=== PATIENT | male | born 1985 | race Caucasian/White ===

== ENCOUNTER 2016-06-20 11:02 | Observation (INO) | payer BC, MEDICAID, OTHER ==
[2016-06-20 13:25] LABS: Urine Bilirubin Negative (Negative); Urine Glucose Negative (Negative); Urine Nitrite Negative (Negative)
[2016-06-20] MEDS ORDERED: NS 0.9% 1000 ML* 1,000 ML IV ONE (14:22)
[2016-06-20] MEDS ORDERED: Ondansetron INJ* 2 MG/ML VIAL IV ONE (14:22)
[2016-06-20] MEDS ORDERED: HYDROmorphone* 1 MG/ML 1 ML SYR IV ONE (14:22)
[2016-06-20 15:22] LABS: Comments Flag Yes; Hematocrit 40 % (42-52); Hemoglobin 13.6 g/dl (14.0-18.0); Mean Corpuscular HGB Conc 34 g/dl (31-36); Mean Corpuscular Hemoglobin 29 pg (27-31); Mean Corpuscular Volume 86 fL (80-94); Mean Platelet Volume 7 um3 (7.4-10.4); Red Blood Count 4.66 10^6/ul (4.0-5.4); Red Cell Distribution Width 12 % (10.5-15); White Blood Count 16.7 10^3/ul (3.5-10.8)
[2016-06-20 15:23] LABS: Add Diff/Slide Review? Slide Review Added
[2016-06-20 15:40] LABS: Albumin 3.9 g/dL (3.2-5.2); BUN/Creatinine Ratio 10.8 (8-20); C Reactive Protein 133.35 mg/L (< 5.00); Calcium 8.9 mg/dL (8.6-10.3); EGFR African American 100.7 (>60); EGFR Non-African American 78.3 (>60); Globulin 3.4 g/dL (2-4); Potassium 3.8 mmol/L (3.5-5.0); Total Bilirubin 0.7 mg/dL (0.2-1.0); Total Protein 7.3 g/dL (6.4-8.9)
[2016-06-20] MEDS ORDERED: Iohexol 300* (CONTRAST) 10 ML SDV IV ONE (16:17)
--- NOTE | 2016-06-20 17:03 | RAD ---
INDICATION: 1 week LEFT lower quadrant abdominal pain. Sharp character of pain. No previous surgery. COMPARISON: October 23, 2014 CT. TECHNIQUE: Multidetector CT images were obtained from the lung bases to the ischial tuberosities with 133 mL Omnipaque 300 IV and oral contrast. Multiplanar reformation. REPORT: Unremarkable visualized inferior thorax. Unremarkable liver, gallbladder, and pancreas. Upper normal size spleen. Small splenule anterior to the spleen. Unremarkable upper GI. Fecal appearing contents in the distal and terminal ileum without significant small bowel dilatation or mural thickening. Unremarkable medially extending diminutive appendix. Mild diffuse colonic diverticulosis. Long segment mural thickening of the sigmoid colon and severe perienteric inflammatory stranding. Small volume of perienteric free pelvic fluid and suggestion of a few foci of extra enteric gas along the RIGHT anterior margin of the mid sigmoid colon bowel wall reference axial images 75 and 76. No loculated perienteric abscess collection evident. Normal adrenal glands. Unremarkable kidneys with symmetric nephrograms and pyelograms. Negative for ureteral dilatation. Largely decompressed urinary bladder without gross abnormality. Symmetric prominent seminal vesicles similar to the prior exam. Negative for thoracic lymphadenopathy. Normal diameter abdominal aorta and iliac arteries. Physiologic distention of the IVC. Negative for suspicious osseous lesions. IMPRESSION: The constellation of findings is most suspicious for diverticulosis of the sigmoid colon with suggestion of microperforation with extensive perienteric inflammatory change without loculated perienteric abscess collection or resulting bowel obstruction. Imaging follow-up after therapy warranted to assess for resolution of the bowel wall thickening.
[2016-06-20] MEDS ORDERED: metroNIDAZOLE IV 500 MG/100ML* 500 MG/100 ML BAG IVPB ONE (18:02)
[2016-06-20] MEDS ORDERED: oxyCODONE TAB* 5 MG TAB PO PRN ×2 (19:04)
[2016-06-20] MEDS ORDERED: Acetaminophen TAB* 325 MG PO PRN (19:05)
--- NOTE | 2016-06-20 19:08 | ADMNOTE ---
Subjective Date of Service: 06/20/16 Interval History: ADMISSION HISTORY AND PHYSICAL EXAM: Allergies Allergy/AdvReac Type Severity Reaction Status Date / Time No Known Allergies Allergy Verified 12/03/13 11:59 Home Medications Medication Instructions Recorded Confirmed Type Preworkout 12/03/13 12/03/13 History Protein [Whey Protein] 1 pow PO 12/03/13 12/03/13 History Clindamycin Cap(NF) [Cleocin 300 300 mg PO Q6H #40 cap 01/07/16 Rx mg Cap(NF)] HPI: Patient developed mid- and left-lower abdominal pain 7-8 days ago. He went to work all wee, did not take any analgesics. He had sweats and chills. He ate OK. Family History: Findings - Parents A&W, 1 aib A&W. No family hx colon disease. Social History: Findings - , 2 children. is his SDM. No tobacco or alcohol use. Past Medical History: Findings - None Review of Systems - Measurements Intake and Output: Intake and Output Last 24 Hours 06/18/16 06/19/16 06/20/16 06/21/16 06:59 06:59 06:59 06:59 Intake Total 1000 Balance 1000 Weight 220 lb Intake: IV Fluids 1000 Other: Date of Last Bowel 06/20/16 Movement - Review of Systems Constitutional Symptoms: Negative: Weight Gain, Weight Loss, Weakness, Fatigue, Fever, Night Sweats, Unexplained Falls, Other Dermatology: Positive: Normal HEENT: Positive: Normal Eyes: Positive: Normal Thyroid: Positive: Normal Pulmonary: Positive: Normal Objective Active Medications: Ciprofloxacin/Dextrose (Cipro 400 Mg Ivpremix(*)) 200 mls @ 200 mls/hr IVPB ED ONCE ONE Stop: 06/20/16 19:01 Vital Signs 06/20/16 06/20/16 06/20/16 11:03 12:39 13:30 Temperature 99.7 F 101.9 F 100 F Pulse Rate 93 88 89 Respiratory 22 16 18 Rate Blood Pressure 135/75 121/67 124/72 (mmHg) O2 Sat by Pulse 100 100 98 Oximetry 06/20/16 06/20/16 06/20/16 14:59 16:00 18:50 Temperature 99.1 F 98.3 F Pulse Rate 81 71 Respiratory 20 16 18 Rate Blood Pressure 126/79 116/58 (mmHg) O2 Sat by Pulse 97 97 Oximetry Oxygen Devices in Use Now: None Appearance: Alert, Result Diagrams: 06/20/16 15:17 06/20/16 15:17 Additional Lab and Data: Lab Results 06/20/16 Range/Units 12:17 Urine Color Yellow Urine Appearance Clear Urine pH 8.0 (5-9) Ur Specific [place] 1.010 (1.010-1.030) Urine Protein Negative (Negative) Urine Ketones Trace H (Negative) Urine Blood Negative (Negative) Urine Nitrate Negative (Negative) Urine Bilirubin Negative (Negative) Urine Urobilinogen Negative (Negative) Ur Leukocyte Esterase Negative (Negative) Urine Glucose Negative (Negative) Assess/Plan/Problems-Billing Assessment: - Patient Problems (1) Diverticulitis Current Visit: Yes Status: Acute Comment: Patient received IV ciprofloxacin and IV metronidazole in the ED. He developed a rash and itching. He was then given IV pip/kisha. He was given 1 dose each of po metronidazole and amox/clav and will take them for 10 days as an outpt. Fup Dr. Drake. The patient should have a colonoscopy in 4-6 weeks.
[2016-06-20] MEDS ORDERED: Ciprofloxacin 400MG IVPREMIX(* 400 MG/200 ML BAG IVPB ONE (20:45)
[2016-06-20] MEDS ORDERED: Piperac/Tazob 3.375 gm in NS* 3.375 GM/100 ML BAG IVPB ONE (23:00)
[2016-06-21] MEDS ORDERED: Piperac/Tazob 3.375 gm in NS* 3.375 GM/100 ML BAG IVPB SCH (03:00)
[2016-06-21 09:47] VITALS: BP 97/43
[2016-06-21] MEDS ORDERED: metroNIDAZOLE TAB* 250 MG PO SCH (10:00)
[2016-06-21] MEDS ORDERED: Ciprofloxacin TAB* 500 MG PO SCH (10:00)
--- NOTE | 2016-06-21 10:07 | DCNOTE ---
"Subjective Date of Service: 06/21/16 Interval History: He feels much better. Less abd pain, less scrotal pain. Good appetite. No more chills or sweats. Family History: Findings - Parents A&W, 1 aib A&W. No family hx colon disease. Social History: Findings - , 2 children. is his SDM. No tobacco or alcohol use. Past Medical History: Findings - None Objective Active Medications: Acetaminophen (Tylenol Tab*) 650 mg PO Q4H PRN PRN Reason: PAIN Ciprofloxacin (Cipro Tab*) 500 mg PO Q12HR SAMUEL Metronidazole (Flagyl Tab*) 500 mg PO TID SAMUEL Oxycodone HCl (Roxycodone Tab*) 5 mg PO Q4H PRN PRN Reason: PAIN - MODERATE Oxycodone HCl (Roxycodone Tab*) 10 mg PO Q6H PRN PRN Reason: PAIN - SEVERE Last Admin: 06/20/16 20:43 Dose: 10 mg Vital Signs 06/20/16 06/20/16 06/20/16 18:50 19:39 20:43 Temperature 98.3 F 98.5 F Pulse Rate 71 84 Respiratory 18 16 16 Rate Blood Pressure 116/58 119/66 (mmHg) O2 Sat by Pulse 97 99 Oximetry 06/20/16 06/20/16 06/21/16 22:43 23:42 03:54 Temperature 97.7 F 97.5 F Pulse Rate 64 58 Respiratory 18 16 16 Rate Blood Pressure 109/62 95/54 (mmHg) O2 Sat by Pulse 99 99 Oximetry 06/21/16 06/21/16 07:02 08:00 Temperature 98.2 F Pulse Rate 59 Respiratory 18 18 Rate Blood Pressure 97/43 (mmHg) O2 Sat by Pulse 99 Oximetry Oxygen Devices in Use Now: None Appearance: Alert, partly up in bed. In good spirits. Looks comfortable. Eyes: No Scleral Icterus Abdominal: No Hepatosplenomegaly, - - Minimal if any abd tenderness. Nl BS. Soft. No organomegaly Extremities: No Edema, No Clubbing, Cyanosis, - Skin: No Rash or Ulcers, No Nodules or Sclerosis, - Neurological: Alert and Oriented x 3, NL Sensation Result Diagrams: 06/20/16 15:17 06/20/16 15:17 Additional Lab and Data: Lab Results 06/20/16 Range/Units 12:17 Urine Color Yellow Urine Appearance Clear Urine pH 8.0 (5-9) Ur Specific [place] 1.010 (1.010-1.030) Urine Protein Negative (Negative) Urine Ketones Trace H (Negative) Urine Blood Negative (Negative) Urine Nitrate Negative (Negative) Urine Bilirubin Negative (Negative) Urine Urobilinogen Negative (Negative) Ur Leukocyte Esterase Negative (Negative) Urine Glucose Negative (Negative) Assess/Plan/Problems-Billing Assessment: - Patient Problems (1) Diverticulitis Current Visit: Yes Status: Acute Status and Disposition: Discharge now. Fup Dr. Drake. Search Terms: nona english, 1985 Search Date: 06/21/2016 10:03:48 AM This report was requested by: Diaz Meneses | Reference #: [id number] There are no results for the search terms that you entered."
[2016-06-21] MEDS ORDERED: Amoxicillin/Clavulanate TAB* 875 MG PO SCH (11:00)
--- NOTE | 2016-06-21 14:56 | ED ---
Lana Ríos Rebecca, scribed for Roland Healy MD on 06/20/16 at 1414 . Abdominal Pain/Male - HPI Summary HPI Summary: Pt is a 30 y/o M with a CC of abdominal pain. Pain began suddenly 2 days ago and has been constant since onset. Pain is in the LLQ with radiation to the testicles, described as feeling like "the chords are being yanked on." Pain is severe, ranked 7/10 and characterized as aching with occasional episodes of severe throbbing. Sx aggravated by movement and alleviated by nothing. Additionally c/o decreased appetite and constipation since yesterday. Denies nausea. - History of Current Complaint Chief Complaint: EDAbdPain Stated Complaint: ABDOMINAL PAIN Time Seen by Provider: 06/20/16 14:10 Hx Obtained From: Patient Onset/Duration: Sudden Onset, Lasting Weeks - 2 weeks, Still Present Timing: Constant Severity Initially: Moderate Severity Currently: Severe Pain Intensity: 7 Pain Scale Used: 0-10 Numeric Location: Discrete At: LLQ Radiates: Yes Radiates to: Other - Testicles Character: Dull, Other: - Occasional throbbing episodes Aggravating Factor(s): Movement Alleviating Factor(s): Other: - Pressure Associated Signs And Symptoms: Positive: Constipation, Decreased Appetite. Negative: Nausea - Allergies/Home Medications Allergies/Adverse Reactions: Allergies Allergy/AdvReac Type Severity Reaction Status Date / Time Ciprofloxacin [From Cipro] Allergy Rash And Verified 06/20/16 22:10 Itching PMH/Surg Hx/FS Hx/Imm Hx Endocrine/Hematology History: Denies: Hx Diabetes, Hx Thyroid Disease Cardiovascular History: Denies: Hx Hypertension Respiratory History: Denies: Hx Asthma, Hx Chronic Obstructive Pulmonary Disease (COPD) GI History: Denies: Hx Ulcer Infectious Disease History: No Infectious Disease History: Denies: Hx Hepatitis, Hx Human Immunodeficiency Virus (HIV), Traveled Outside the [place] in Last 30 Days - Family History Known Family History: Negative: Hypertension - Social History Alcohol Use: Rare Substance Use Type: Reports: None Smoking Status (MU): Former Smoker Review of Systems Positive: Abdominal Pain - LLQ with radiation to the testicles, Other - Decreased appetite. Negative: Nausea Positive: other - Constipation All Other Systems Reviewed And Are Negative: Yes Physical Exam Triage Information Reviewed: Yes Vital Signs On Initial Exam: Initial Vitals Temp Pulse Resp BP Pulse Ox 99.7 F 93 22 135/75 100 06/20/16 11:03 06/20/16 11:03 06/20/16 11:03 06/20/16 11:03 06/20/16 11:03 Vital Signs Reviewed: Yes Appearance: Positive: Well-Appearing, No Pain Distress Skin: Positive: Warm, Skin Color Reflects Adequate Perfusion, Dry Head/Face: Positive: Normal Head/Face Inspection Eyes: Positive: Normal ENT: Positive: Normal ENT inspection Neck: Positive: Supple, Nontender Respiratory/Lung Sounds: Positive: Clear to Auscultation, Breath Sounds Present Cardiovascular: Positive: RRR Abdomen Description: Negative: Nontender - Tender in the LLQ Bowel Sounds: Positive: Present Musculoskeletal: Positive: Normal Neurological: Positive: Normal Psychiatric: Positive: Normal - Jolly Coma Scale Coma Scale Total: 15 Diagnostics - Vital Signs Vital Signs Temp Pulse Resp BP Pulse Ox 06/20/16 13:30 100 F 89 18 124/72 98 06/20/16 12:39 101.9 F 88 16 121/67 100 06/20/16 11:03 99.7 F 93 22 135/75 100 - Laboratory Lab Results: Lab Results 06/20/16 Range/Units 12:17 Urine Color Yellow Urine Appearance Clear Urine pH 8.0 (5-9) Ur Specific [place] 1.010 (1.010-1.030) Urine Protein Negative (Negative) Urine Ketones Trace H (Negative) Urine Blood Negative (Negative) Urine Nitrate Negative (Negative) Urine Bilirubin Negative (Negative) Urine Urobilinogen Negative (Negative) Ur Leukocyte Esterase Negative (Negative) Urine Glucose Negative (Negative) Result Diagrams: 06/20/16 15:17 06/20/16 15:17 Lab Statement: Any lab studies that have been ordered have been reviewed, and results considered in the medical decision making process. - CT Abd/Pel CT CT Interpretation Completed By: Radiologist - The constellation of findings is most suspicious for diverticulosis of the sigmoid colon with suggestion of microperforation with extensive perienteric inflammatory change without loculated perienteric abscess collection or resulting bowel obstruction. Imaging follow-up after therapy warranted to assess for resolution of the bowel wall thickening. Abdominal Pain Fem Course/Dx - Course Assessment/Plan: Mr. Delarosa is a 30 y/o M with a CC of severe LLQ pain with radiation to the testicles. Additionally c/o decreased appetite and constipation. Denies nausea. Abd/Pel CT reveals "The constellation of findings is most suspicious for diverticulosis of the sigmoid colon with suggestion of microperforation with extensive perienteric inflammatory change without loculated perienteric abscess collection or resulting bowel obstruction. Imaging follow-up after therapy warranted to assess for resolution of the bowel wall thickening." He was administered Cipro, Flagyl, Dilaudid, Zofran and IV fluids in the ED. Discussed care of pt with Dr. Chi who advised pt be admitted to the hospital. Discussed care of pt with Dr. Meneses, who accepts pt for admission. He will be admitted to hospitalist services with a Dx of diverticulitis with perforation. - Diagnoses Provider Diagnoses: Diverticulitis of colon with perforation - Provider Notifications Discussed Care Of Patient With: Dr. Chi, alligator hunter, who advises that pt be admitted to the hospital. Dr. Meneses, hospitalist, at [phone], who accepts pt for admission. Time Discussed With Above Provider: 18:00 - Critical Care Time Critical Care Time: 30-74 min Discharge - Discharge Plan Condition: Improved Disposition: ADMITTED TO [facility] documentation as recorded by the Lana zambrano Rebecca accurately reflects the service I personally performed and the decisions made by me, Roland Healy MD.
--- NOTE | 2016-06-21 22:06 | DS ---
CC: Dr. Drake DISCHARGE SUMMARY: DATE OF ADMISSION: DATE OF DISCHARGE: 06/21/16 HOSPITAL COURSE: This 30-year-old man came complaining of abdominal and scrotal pain. He had had t he symptoms including chills and sweats for 7 to 8 days at home. He continues to go to work every sc heduled day. CT scan showed few small diverticulosis and evidence of diverticulitis in the sigmoid colon. There was severe perienteric inflammatory stranding. There were a few foci of extraenteric gas along the margin of the mid sigmoid colon bowel wall, but no loculated abscess collection was evident. The patient's temperature was 101.9 in the emergency room. He received ciprofloxacin and metronidaz ole in the emergency room. He received a few doses of piperacillin and tazobactam after admission. The second hospital day, he was much better. Both the abdominal pain and scrotal pain were much imp roved. He had no more chills or sweats. He will get 10 days of oral ciprofloxacin and metronidazole at home. He should have a colonoscopy i n 4 to 6 weeks. FINAL DIAGNOSIS: Diverticulitis. DISCHARGE MEDICATIONS: 1. Acetaminophen 650 mg every 4 hours p.r.n. 2. Ciprofloxacin 500 mg every 12 hours for 10 days. 3. Metronidazole 500 mg t.i.d. for 10 days. 4. Oxycodone 5 mg every 4 hours p.r.n., dispensed 10 with no refills. 5. Whey protein and pre-workout powders as before. [id number]/[facility] #: [id number]
== END 2016-06-21 11:10 | disposition home or self-care (01) ==
LOC: ED 11:02 → MEDTELE 18:30
PROVIDERS: ADMIT Internal Medicine; ATTEND Internal Medicine
DX: K57.32 Diverticulitis of large intestine without perforation or abscess without bleeding (principal)
CPT/HCPCS: 36415; 74177; 80053; 81003; 83605; 83690; 85025; 86140; 87040; 96365; 96366; 96367; 96375; 99291; A9270-GY; G0378; J0744; J1170; J2405; J2543; Q9967

== ENCOUNTER 2017-06-29 09:58 | Emergency (ER) | payer BC, OTHER ==
[2017-06-29 10:40] LABS: ABS Basophils 0.1 10^3/ul (0-0.2); ABS Eosinophils 0.1 10^3/ul (0-0.6); ABS Lymphocytes 1.2 10^3/ul (1.0-4.8); ABS Monocytes 0.5 10^3/ul (0-0.8); ABS Neutrophils 5.4 10^3/ul (1.5-7.7); ABS Nucleated RBC 0 10^3/ul; Hematocrit 42 % (42-52); Hemoglobin 14.6 g/dl (14.0-18.0); Lymphocyte % 16.2 % (25-47); Mean Corpuscular HGB Conc 35 g/dl (31-36); Mean Corpuscular Hemoglobin 31 pg (27-31); Mean Corpuscular Volume 88 fL (80-94); Mean Platelet Volume 7.5 um3 (7.4-10.4); Nucleated Red Blood Cells % 0.1; Platelet Count 183 10^3/ul (150-450); Red Blood Count 4.77 10^6/ul (4.0-5.4); Red Cell Distribution Width 13 % (10.5-15); White Blood Count 7.3 10^3/ul (3.5-10.8)
[2017-06-29 10:51] LABS: INR 1.02 (0.77-1.02)
[2017-06-29 10:54] LABS: Urine Appearance Clear; Urine Blood Negative (Negative); Urine Color Yellow; Urine Ketones Negative (Negative); Urine Protein Negative (Negative); Urine Specific Gravity 1.015 (1.010-1.030); Urine Urobilinogen Negative (Negative)
[2017-06-29 11:02] LABS: EGFR Non-African American 78.6 (>60)
[2017-06-29] MEDS ORDERED: Iohexol 300* (CONTRAST) 10 ML SDV IV ONE (11:11)
--- NOTE | 2017-06-29 14:11 | RAD ---
INDICATION: Left lower quadrant pain COMPARISON: June 20, 2016 TECHNIQUE: Axial source images were obtained from the hemidiaphragms to the symphysis pubis following administration of oral and intravenous contrast. 136 mL Omnipaque 300 was utilized. Coronal and sagittal reconstructed images were acquired. Lung bases: The lung bases are clear. Liver: The liver is normal in size. There are no masses. There is no ductal dilatation. Gallbladder: There are no calcified gallstones. There is no evidence of wall thickening or pericholecystic fluid. Spleen: The spleen is normal in size. There are no masses. Pancreas: There is no focal pancreatic mass or ductal dilatation. Adrenal glands: There is no evidence of adrenal mass. Kidneys: The kidneys are normal in size and position. There are prompt nephrograms and there is prompt excretion bilaterally. There are no renal parenchymal masses. There is no evidence of nephrolithiasis. Adenopathy: There is no evidence of adenopathy by size criteria. Fluid collections: There is free fluid in the dependent portion of the pelvis. Vessels:There are no significant atherosclerotic changes involving the aorta. There is no focal aneurysm. The iliac vessels are normal in caliber. The IVC appears normal. GI tract: The upper GI tract is normal to include the terminal ileum. Ileocecal valve is normal. The cecum and appendix are normal. The transverse colon is normal. At the rectosigmoid junction. There is perienteric stranding compatible with mild diverticulitis. There are no findings of obstruction or perforation Pelvic organs: Prostate is mildly enlarged Bladder: There are no bladder masses. Abdominal and pelvic soft tissues: The extraperitoneal abdominal and pelvic soft tissues appear normal.. Osseous structures: There are no acute osseous findings. Other: None IMPRESSION: CT findings of acute diverticulitis of the colon near the rectosigmoid junction
[2017-06-29 15:54] VITALS: BP 109/67
--- NOTE | 2017-06-30 02:19 | ED ---
Lana Ríos Rebecca, scribed for Ramya Conte MD on 06/29/17 at 1021 . Abdominal Pain/Male - HPI Summary HPI Summary: Pt is a 31 y/o M who presents to ED c/o LLQ abdominal pain. Pain began yesterday upon waking up for work, initially mild. 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 Upon waking up this morning, the pain had improved but due to its consistency, he presented to the ED today. Pain is characterized as aching, currently moderate, ranked 4/10 and at its worst, 7/10. Pain is located in the LLQ and does not radiate anywhere, including the testicles. Sx aggravated and alleviated by nothing. Additionally notes mild constipation that began last night as well as intermittent testicular pain that has been chronic - he believes it is secondary to his boxers. Denies blood in stool, V/D, fever, CP, SOB, and dysuria. Current episode is similar to prior flareup of diverticulitis. Did not eat this morning - drank caffeine this morning. FHx and PMHx diverticulitis - initially diagnosed 1.5 years ago after a flareup for which he was admitted overnight and given Abx (Flagyl). No PSHx. Does not have a PCP and drove himself to the ED today. Pt is allergic to Cipro. - History of Current Complaint Chief Complaint: EDAbdPain Stated Complaint: ABD PAIN Time Seen by Provider: 06/29/17 10:09 Hx Obtained From: Patient Onset/Duration: Gradual Onset, Lasting Days - Started yesterday, Still Present Timing: Constant Severity Initially: Mild Severity Currently: Moderate Pain Intensity: 4 Pain Scale Used: 0-10 Numeric Location: Discrete At: LLQ Radiates: No Character: Other: - Aching Aggravating Factor(s): Nothing Alleviating Factor(s): Nothing Associated Signs And Symptoms: Positive: Constipation - mild, Other - intermittent testicular pain for months, none now, and pain does not radiate to the testicles. Negative: Fever, Chest Pain, Blood in Stool, Vomiting, Diarrhea Similar Episode/Dx As:: Prior flareup - Risk Factors Testicular Torsion: Negative - Allergies/Home Medications Allergies/Adverse Reactions: Allergies Allergy/AdvReac Type Severity Reaction Status Date / Time ciprofloxacin [From Cipro] Allergy Rash And Verified 06/29/17 10:12 Itching PMH/Surg Hx/FS Hx/Imm Hx Previously Healthy: No Endocrine/Hematology History: Denies: Hx Diabetes, Hx Thyroid Disease Cardiovascular History: Denies: Hx Hypertension Respiratory History: Denies: Hx Asthma, Hx Chronic Obstructive Pulmonary Disease (COPD) GI History: Reports: Other GI Disorders - diverticulitis Denies: Hx Ulcer Sensory History: Denies: Hx Contacts or Glasses, Hx Hearing Aid Opthamlomology History: Denies: Hx Contacts or Glasses - Surgical History Surgery Procedure, Year, and Place: none Infectious Disease History: No Infectious Disease History: Denies: Hx Hepatitis, Hx Human Immunodeficiency Virus (HIV), Traveled Outside the [place] in Last 30 Days - Family History Known Family History: Positive: Other - Hx diverticulitis (father) Negative: Hypertension - Social History Occupation: Employed Full-time - [employer] Lives: With Family Alcohol Use: Rare Substance Use Type: Reports: None Smoking Status (MU): Former Smoker Review of Systems Negative: Fever Negative: Chest Pain Negative: Shortness Of Breath Positive: Abdominal Pain - LLQ, Other - mild constipation. Negative: Vomiting, Diarrhea Positive: pain - Testicular pain - intermittent chronically, other - NEGATIVE: Blood in stool. Negative: dysuria Musculoskeletal: Negative Skin: Negative Neurological: Negative Psychological: Normal All Other Systems Reviewed And Are Negative: Yes Physical Exam - Summary Physical Exam Summary: Appearance: well-appearing, moderate pain distress, well-nourished Skin: Warm, color reflects adequate perfusion Head: Normal Head/Face inspection, Atraumatic Eyes: Conjunctiva clear ENT: Normal inspection Neck: Supple, no nodes, no JVD. Respiratory: Lungs clear, Normal breath sounds, no respiratory distress Cardio: RRR, No murmur, pulses normal, brisk capillary refill Abdomen: Soft, tenderness in the LLQ, no guarding, no rebound, no masses : Circumcised male, testicles descended bilaterally, no testicular masses, no inguinal or femoral hernias Rectal: Firm, brown stool, not impacted, sent for testing, guaiac neg Nurse Franco is smash hand for rectal and testicular exam Bowel sounds: present Musculoskeletal: Strength Intact/ROM intact. No calf tenderness. No edema. Psychological: Normal Neuro: Alert, muscle tone normal, no focal deficit Triage Information Reviewed: Yes Vital Signs On Initial Exam: Initial Vitals Temp Pulse Resp BP Pulse Ox 98.6 F 61 16 129/85 99 06/29/17 10:01 06/29/17 10:01 06/29/17 10:01 06/29/17 10:01 06/29/17 10:01 Vital Signs Reviewed: Yes Diagnostics - Vital Signs Vital Signs Temp Pulse Resp BP Pulse Ox 06/29/17 10:01 98.6 F 61 16 129/85 99 - Laboratory Lab Results: Lab Results 06/29/17 06/29/17 06/29/17 Range/Units 10:29 10:29 10:29 WBC 7.3 (3.5-10.8) 10^3/ul RBC 4.77 (4.0-5.4) 10^6/ul Hgb 14.6 (14.0-18.0) g/dl Hct 42 (42-52) % MCV 88 (80-94) fL MCH 31 (27-31) pg MCHC 35 (31-36) g/dl RDW 13 (10.5-15) % Plt Count 183 (150-450) 10^3/ul MPV 7.5 (7.4-10.4) um3 Neut % (Auto) 74.8 (38-83) % Lymph % (Auto) 16.2 L (25-47) % [place] % (Auto) 7.1 H (0-7) % Eos % (Auto) 1.0 (0-6) % Baso % (Auto) 0.9 (0-2) % Absolute Neuts (auto) 5.4 (1.5-7.7) 10^3/ul Absolute Lymphs (auto) 1.2 (1.0-4.8) 10^3/ul Absolute Monos (auto) 0.5 (0-0.8) 10^3/ul Absolute Eos (auto) 0.1 (0-0.6) 10^3/ul Absolute Basos (auto) 0.1 (0-0.2) 10^3/ul Absolute Nucleated RBC 0 10^3/ul Nucleated RBC % 0.1 INR (Anticoag Therapy) 1.02 (0.77-1.02) APTT 29.9 (26.0-36.3) seconds Sodium 138 L (139-145) mmol/L Potassium 4.0 (3.5-5.0) mmol/L Chloride 105 (101-111) mmol/L Carbon Dioxide 28 (22-32) mmol/L Anion Gap 5 (2-11) mmol/L BUN 17 (6-24) mg/dL Creatinine 1.10 (0.67-1.17) mg/dL Est GFR ( Amer) 101.1 (>60) Est GFR (Non-Af Amer) 78.6 (>60) BUN/Creatinine Ratio 15.5 (8-20) Glucose 121 H (70-100) mg/dL Lactic Acid (0.5-2.0) mmol/L Calcium 8.7 (8.6-10.3) mg/dL Magnesium 2.0 (1.9-2.7) mg/dL Total Bilirubin 0.70 (0.2-1.0) mg/dL AST 15 (13-39) U/L ALT 14 (7-52) U/L Alkaline Phosphatase 50 (34-104) U/L C-Reactive Protein 8.16 H (< 5.00) mg/L Total Protein 6.6 (6.4-8.9) g/dL Albumin 3.9 (3.2-5.2) g/dL Globulin 2.7 (2-4) g/dL Albumin/Globulin Ratio 1.4 (1-3) Amylase 41 (29-103) U/L Lipase 19 (11.0-82.0) U/L Urine Color Urine Appearance Urine pH (5-9) Ur Specific [place] (1.010-1.030) Urine Protein (Negative) Urine Ketones (Negative) Urine Blood (Negative) Urine Nitrate (Negative) Urine Bilirubin (Negative) Urine Urobilinogen (Negative) Ur Leukocyte Esterase (Negative) Urine Glucose (Negative) 18 06/29/17 Range/Units 10:29 10:37 WBC (3.5-10.8) 10^3/ul RBC (4.0-5.4) 10^6/ul Hgb (14.0-18.0) g/dl Hct (42-52) % MCV (80-94) fL MCH (27-31) pg MCHC (31-36) g/dl RDW (10.5-15) % Plt Count (150-450) 10^3/ul MPV (7.4-10.4) um3 Neut % (Auto) (38-83) % Lymph % (Auto) (25-47) % [place] % (Auto) (0-7) % Eos % (Auto) (0-6) % Baso % (Auto) (0-2) % Absolute Neuts (auto) (1.5-7.7) 10^3/ul Absolute Lymphs (auto) (1.0-4.8) 10^3/ul Absolute Monos (auto) (0-0.8) 10^3/ul Absolute Eos (auto) (0-0.6) 10^3/ul Absolute Basos (auto) (0-0.2) 10^3/ul Absolute Nucleated RBC 10^3/ul Nucleated RBC % INR (Anticoag Therapy) (0.77-1.02) APTT (26.0-36.3) seconds Sodium (139-145) mmol/L Potassium (3.5-5.0) mmol/L Chloride (101-111) mmol/L Carbon Dioxide (22-32) mmol/L Anion Gap (2-11) mmol/L BUN (6-24) mg/dL Creatinine (0.67-1.17) mg/dL Est GFR ( Amer) (>60) Est GFR (Non-Af Amer) (>60) BUN/Creatinine Ratio (8-20) Glucose (70-100) mg/dL Lactic Acid 1.8 (0.5-2.0) mmol/L Calcium (8.6-10.3) mg/dL Magnesium (1.9-2.7) mg/dL Total Bilirubin (0.2-1.0) mg/dL AST (13-39) U/L ALT (7-52) U/L Alkaline Phosphatase (34-104) U/L C-Reactive Protein (< 5.00) mg/L Total Protein (6.4-8.9) g/dL Albumin (3.2-5.2) g/dL Globulin (2-4) g/dL Albumin/Globulin Ratio (1-3) Amylase (29-103) U/L Lipase (11.0-82.0) U/L Urine Color Yellow Urine Appearance Clear Urine pH 6 (5-9) Ur Specific [place] 1.015 (1.010-1.030) Urine Protein Negative (Negative) Urine Ketones Negative (Negative) Urine Blood Negative (Negative) Urine Nitrate Negative (Negative) Urine Bilirubin Negative (Negative) Urine Urobilinogen Negative (Negative) Ur Leukocyte Esterase Negative (Negative) Urine Glucose Negative (Negative) Result Diagrams: 06/29/17 10:29 06/29/17 10:29 Lab Statement: Any lab studies that have been ordered have been reviewed, and results considered in the medical decision making process. - CT CT Abd/Pel CT Interpretation: Positive (See Comments) - CT findings of acute diverticulitis of the colon near the rectosigmoid junction. ED physician reviewed radiology results. CT Interpretation Completed By: Radiologist Re-Evaluation - Re-Evaluation First Eval Re-Evaluation Time: 14:57 Change: Improved Comment: Discussing CT results. Pain is controlled, discussed definite followup with a surgeon and a PCP. Abdominal Pain Fem Course/Dx - Course Assessment/Plan: Pt is a 31 y/o M with a PMHx of diverticulitis who presents to ED c/o aching LLQ abdominal pain since yesterday, currently 4/10, at its worst 7 /10, without radiation. CT abd/pel reveals acute diverticulitis of the colon near the rectosigmoid junction. Bloodwork, UA, and stool occult were done. Stool occult was neg. UA shows no abnormal findings. Wbc was normal. No fever or vomiting in the ED. He was offered pain medication which was declined. Since pt's pain is controlled without medication, and pt is not vomiting and able to take po, and CT shows uncomplicated diverticulitis at this time, will start treatment for diverticulitis with oral medications: Augmentin (because pt is allergic to Cipro) and Flagyl. Pt will be D/C with Dx fo diverticulitis and he was referred to surgery (may need elective colon resection as this is pt's second episode of diverticulitis at such a young age, 31 yo) and the [facility] (pt has no PCP) and given Rx for Augmentin and flagyl. Allergy noted and pt medications reviewed this visit. - Diagnoses Differential Diagnosis/HQI/PQRI: Appendicitis, Bowel Obstruction, Constipation, Diverticulitis, Pancreatitis, Ureteral Stone Provider Diagnoses: Diverticulitis Discharge - Sign-Out/Discharge Documenting (check all that apply): Discharge/Admit/Transfer - Discharge - Discharge Plan Condition: Stable Disposition: HOME Prescriptions: Amoxicillin/Clavulanate TAB* [Augmentin TAB 875*] 875 mg PO BID #20 tab metroNIDAZOLE [Flagyl] 500 mg PO Q6H #40 tablet Patient Education Materials: Diverticulitis (ED) Referrals: [facility] [place], [facility] [Other] Joni Patel MD [Medical Doctor] - As Soon As Possible Additional Instructions: There is a [facility] to help you get established with a primary care provider. Please call [phone] to get a primary care provider as soon as possible. You also need to see a surgeon in follow up. Take the Augmentin and Flagyl as directed. RETURN TO THE ER FOR ANY NEW OR WORSENING SYMPTOMS - Billing Disposition and Condition Condition: STABLE Disposition: HOME The documentation as recorded by the Lana zambrano Rebecca accurately reflects the service I personally performed and the decisions made by , Ramya Conte MD.
== END 2017-06-29 15:53 | disposition home or self-care (01) ==
LOC: ED 09:58
DX: K57.32 Diverticulitis of large intestine without perforation or abscess without bleeding (principal); K59.00 Constipation, unspecified; Z88.1 Allergy status to other antibiotic agents; Z87.891 Personal history of nicotine dependence
CPT/HCPCS: 36415; 74177; 80053; 81003; 82150; 82272; 83605; 83690; 83735; 85025; 85610; 85730; 86140; 99282; Q9967